=== PATIENT | female | born 2000 | race Caucasian/White ===

== ENCOUNTER 2021-08-20 02:33 | Emergency (ER) | payer BC ==
[~2021-08-20] VITALS: Ht 162.6 cm; Wt 70.3 kg
[2021-08-20 02:40] VITALS: BP 134/96
--- NOTE | 2021-08-20 02:40 | NUR ---
to bed ambulatory
--- NOTE | 2021-08-20 03:02 | NUR ---
REPORTS FALLING 7 FT OFF BUNK BED ONTO HARDWOOD FLOOR. DENIES LOC, REPORTS ETOH. PRESENTS WITH GOLFBALL SIZED HEMATOMA TO FRONTAL HEAD, LAC TO L CHEST AND REDNESS WITH BRUISING TO GENERAL FACE AND CHEST.
[2021-08-20] MEDS ORDERED: DOPPLER MC ONE (03:51)
[2021-08-20] MEDS ORDERED: IBUPROFEN 600 MG TAB PO ONE (04:20)
--- NOTE | 2021-08-20 07:12 | NUR ---
Report and continuation of care received from DEMETRIA Smith
[2021-08-20 07:15] VITALS: BP 118/70
--- NOTE | 2021-08-20 07:20 | NUR ---
Patient resting in low-fowlers position in position of comfort. States 4/10 pain at this time; patient in no distress. Bed locked in lowest position, side rails x 1.
[2021-08-20] MEDS ORDERED: ACET-10509 PO (07:22)
== END 2021-08-20 07:39 | disposition home or self-care (01) ==
LOC: MED 02:33
DX: S02.2XXA Fracture of nasal bones, initial encounter for closed fracture (principal); S09.93XA Unspecified injury of face, initial encounter; F10.129 Alcohol abuse with intoxication, unspecified; R04.0 Epistaxis; Z79.899 Other long term (current) drug therapy; W06.XXXA Fall from bed, initial encounter; Y93.89 Activity, other specified; Y92.89 Other specified places as the place of occurrence of the external cause; Y99.8 Other external cause status
CPT/HCPCS: 70450; 70486; 99284